=== PATIENT | male | born 1935 | race Caucasian/White ===

== ENCOUNTER 2019-01-31 17:02 | Inpatient (IN) | payer OTHER ==
[~2019-01-31] VITALS: Ht 157.5 cm; Wt 44.5 kg
[2019-01-31] MEDS ORDERED: HYDROcodone-ACET 5/325MG TAB PO ONE (19:45)
[2019-01-31] MEDS ORDERED: ONDANSETRON ODT 4 MG TAB PO ONE (19:45)
[2019-01-31 20:05] LABS: Basophils # (auto) 0 uL; Basophils % (auto) 0.9 % (0.0-2.0); Eosinophils # (auto) 0.1 uL; Eosinophils % (auto) 3.9 % (0.0-7.0); Hematocrit 29.8 % (41.0-53.0); Lymphocytes # (auto) 0.7 uL; Lymphocytes % (auto) 23.4 % (10.0-50.0); Mean Corpuscular Hemoglobin 31.8 pg (28.0-32.0); Mean Corpuscular Hgb Conc. 33.5 g/dL (32.0-36.0); Monocytes # (auto) 0.2 uL; Monocytes % (auto) 7.8 % (0.0-12.0); Neutrophils # (auto) 1.9 uL; Platelet Count (auto) 191 10^3/uL (140-450); Red Blood Cells 3.13 10^6/uL (4.5-5.90); Red Cell Distribution Width 13.1 % (11.8-14.3); White Blood Cell 2.9 10^3/uL (4.4-10.8)
[2019-01-31 20:20] LABS: Albumin 3.6 g/dL (3.4-5.0); Anion Gap 6 (5-15); Blood Urea Nitrogen 40 mg/dL (7-18); Carbon Dioxide 21 mmol/L (21-32); Chloride 116 mmol/L (98-107); Glucose 118 mg/dL (74-106); Magnesium 2.2 mg/dL (1.6-2.6); Potassium 4.7 mmol/L (3.5-5.1); Sodium 143 mmol/L (136-145)
[2019-01-31 20:21] LABS: INR 0.96 (0.9-1.15); Partial Thromboplastin Time 35.6 sec (23.64-32.05)
[2019-01-31 20:30] LABS: Alanine Aminotransferase 18 U/L (16-61); Alkaline Phosphatase 72 U/L (45-117); Aspartate Aminotransferase 18 U/L (15-37); BUN/Creatinine Ratio 21.1; Bilirubin, Total 0.2 mg/dL (0.2-1.0); Calcium 8.9 mg/dL (8.5-10.1); GFR African American 44 mL/min; GFR Non-African American 36 mL/min
[2019-01-31] MEDS ORDERED: ACETAMINOPHEN 500 MG TAB PO PRN (21:45)
[2019-01-31] MEDS ORDERED: TEMAZEPAM 15 MG CAP PO PRN (21:45)
[2019-01-31] MEDS ORDERED: ONDANSETRON HCL 4 MG/2 ML VIAL IV PRN (21:45)
[2019-01-31] MEDS ORDERED: DOCUSATE SOD 100 MG CAP PO PRN (21:45)
[2019-01-31] MEDS ORDERED: SODIUM CHLORIDE 0.9% 250 ML IV ONE (22:00)
--- NOTE | 2019-01-31 22:45 | NUR ---
MS admit from ER CEE ALMEIDA admitted to [facility]. Patient oriented to KENDAL DEVLIN RN primary RN, unit, room, bed, and unit policies regarding patient care and visiting hours. Patient weighed by bedscale and encouraged to call if they need something. All questions and concerns addressed, patient verbalized understanding. Bed in low position and call light within reach
[2019-01-31 22:51] VITALS: BP 149/52
[2019-02-01] MEDS ORDERED: INFLUENZA QUAD 2019-2020 0.5ml SYRG IM ONE (03:30)
[2019-02-01 05:00] VITALS: BP 151/59
--- NOTE | 2019-02-01 05:08 | NUR ---
Received call back from hospitalist Jennifer. Inform hospitalist of patients blood pressure. VS 174/59 b/p, HR 58, o2 saturation 100%, RR 19. Informed hospitalist that I retook B/P 151/59, HR 59. New orders received 10mg Hydralazine PO once, orders read back and confirmed. Informed Hospitalist that patient has history of HTN and home medications is unknown according to patient.
[2019-02-01] MEDS ORDERED: hydrALAZINE HCL 10 MG TAB PO ONE (05:15)
--- NOTE | 2019-02-01 06:52 | NUR ---
Reassessed blood pressure 145/68, HR 62.
[2019-02-01 06:54] LABS: Basophils # (auto) 0 uL; Basophils % (auto) 1.3 % (0.0-2.0); Eosinophils # (auto) 0.1 uL; Eosinophils % (auto) 4.1 % (0.0-7.0); Hematocrit 29.5 % (41.0-53.0); Hemoglobin 10.3 g/dL (13.5-17.5); Lymphocytes % (auto) 33.9 % (10.0-50.0); Mean Corpuscular Hemoglobin 32.7 pg (28.0-32.0); Mean Corpuscular Hgb Conc. 34.8 g/dL (32.0-36.0); Mean Corpuscular Volume 93.9 fL (80.0-100.0); Monocytes # (auto) 0.2 uL; Monocytes % (auto) 6.8 % (0.0-12.0); Neutrophils # (auto) 1.6 uL; Neutrophils % (auto) 53.9 % (37.0-80.0); Platelet Count (auto) 156 10^3/uL (140-450); Red Blood Cells 3.15 10^6/uL (4.5-5.90); Red Cell Distribution Width 13.1 % (11.8-14.3)
[2019-02-01] MEDS ORDERED: ALBUTEROL SULF 2.5 MG/0.5ML(0.5%) NEB SOLN NEB PRN (07:00)
[2019-02-01] MEDS ORDERED: IPRATROPIUM BROM 0.5 MG/2.5ML INH SOL NEB PRN (07:00)
[2019-02-01] MEDS ORDERED: HYDROcodone-ACET 5/325MG TAB PO PRN (07:00)
[2019-02-01] MEDS ORDERED: cloNIDine HCL 0.1 MG TAB PO PRN ×2 (07:00→13:45)
[2019-02-01 07:04] LABS: BUN/Creatinine Ratio 23.4; Calcium 8.6 mg/dL (8.5-10.1); Potassium 5.1 mmol/L (3.5-5.1)
--- NOTE | 2019-02-01 07:16 | NUR ---
Report given to juan sosa
--- NOTE | 2019-02-01 07:20 | NUR ---
Opening Shift Note Assumed care of patient, awake and alert x3. No S/S of distress/SOB, no pain noted or reported. Respirations are even and unlabored on RA. Updated on POC and instructed to call for assistance as needed, pt. verbalized understanding but needs reinforcement. Bed locked in lowest position, side rails up x2, call light within reach, bed alarm on for safety. Will continue to monitor for changes Q1hr and PRN.
--- NOTE | 2019-02-01 08:25 | NUR ---
Respiratory note: PT AWAKE, AND ALERT. NO RESPIRATORY DISTRESS NOTED. SPO2 97% ON RA, HR 77, RR 16, BS CLEAR T/O. PRN MEDNEB TX NOT INDICATED AT THIS TIME. PT INFORMED TO PUSH CALL BUTTON IF INCREASED WOB, SOB, OR WHEEZING OCCUR.
[2019-02-01 09:00] VITALS: BP_SYST 161; BP_SYST 168; BP_DIAS 50; BP_DIAS 64
[2019-02-01] MEDS ORDERED: FERR-20 PO ×2 (09:34→09:37)
[2019-02-01] MEDS ORDERED: CLO01T PO ×2 (09:34→09:37)
[2019-02-01] MEDS ORDERED: LISI40TA PO ×2 (09:35→09:37)
[2019-02-01] MEDS ORDERED: MIRT1TAB38 PO ×2 (09:35→09:37)
[2019-02-01] MEDS ORDERED: B-COTAB10 PO ×2 (09:36→09:37)
[2019-02-01] MEDS ORDERED: ALB5IS NEB (09:37)
[2019-02-01] MEDS ORDERED: LISINOPRIL 20 MG TAB PO SCH (10:00)
[2019-02-01] MEDS ORDERED: PANTOPRAZOLE 40 MG TAB PO SCH (10:00)
--- NOTE | 2019-02-01 10:00 | NUR ---
SPOKE WITH [facility] CODING SPEC ZUNILDA, WITH [employer], STATES ALL HOME HEALTH SERVICES HAS BEEN SET UP AND PATIENT IS OKAY TO BE DISCHARGED HOME TODAY PER MD ORDERS. [employer] WILL BE ARRANGED FOR 2PM TODAY.
[2019-02-01 13:00] VITALS: BP 126/61
--- NOTE | 2019-02-01 13:20 | NUR ---
Dr. Ramirez at bedside doing mini mental assessment.
--- NOTE | 2019-02-01 13:40 | NUR ---
Spoke with Dr. Gonzalez Regarding mini-mental assessment, states pt. is cleared to be discharged home. Will verify with social services specialist, Fernanda Valentin, and [facility] regarding transportation.
--- NOTE | 2019-02-01 14:40 | NUR ---
Spoke with Fernanda Homero Wastewater Design Engineer Fernanda states that patient is cleared for discharge home after speaking with [facility] and [facility].
--- NOTE | 2019-02-01 15:10 | NUR ---
D/C Planning Per consult for Home health for HHC, safety, RN visits, DRYING ROOM OPERATOR to arrange for [facility]. Contacted [facility]: ) Fax:) faxed medical records. Per Larissa from [facility] referral has been received and service to start within 48hrs upon d/c day. Contacted [facility]:) spoke to Jessika. Per Jessika from [facility] authorization has been given to home health acceptance. Contacted [facility]:) spoke to Jennifer. Per Jennifer from [facility] transportation will be 15:00. Informed KELY Lopez. Addendum: 02/01/19 at 1511 by ROHINI JERNIGAN Amended: Links added.
--- NOTE | 2019-02-01 15:15 | NUR ---
Discharge instructions given as ordered. Encourage to follow up with PCP as instructed. All questions and concerns addressed. Patient verbalized understanding. Medication reconciliation form completed and copy given to patient. Influenza vaccine given as ordered, patient tolerated well. IV removed with catheter intact, pressure dressing applied. Patient taken to vehicle via wheelchair by [employer] with all personal belongings. No distress noted at time of departure.
--- NOTE | 2019-02-01 16:52 | NUR ---
assessment re: limited support system. Patient is a 83 year old male who is alert and oriented, but can be forgetful. Prior to admission patient lived home with his Adrianna and functioned with her assistance. Per patient his PCP is Dr Agosto. Per patient Adrianna cooks and cleans for him. Per patient he has a cane and fww for home use. Patients son usually helps with driving to appointment. Patient informed me his need is transportation. Patient has been provided with [employer] bus information to his who is at bedside. Patient also has a ss consult for home health, home safety, and ICE PLANT OPERATOR. I have assessed patient and he is capable of making his own decisions. DR Ramirez has done a mini mental on patient and found him to be capable of making decisions. Patient has been cleared by MD and myself to return home. When I spoke to Mireille Steiner regarding patient and his . Mireille was more concerned about patients making decisions. Please see my note on MR # [id number]. [employer] case reviewer has set up transportation home and RN and ICE PLANT OPERATOR visit. I informed patient he has a right to speak to a high school social studies tutor regarding all care. I informed patient he has a right to participate in any and all discharge planning. Patient does not have a POA and advanced directive. I have offered patient information on POA and advanced directives. I informed the patient the advantages and benefits of having an Advanced Directive. Patient verbalized understanding and agreed to discharge plan. Addendum: 02/01/19 at 1659 by Fernanda JENKINS Amended: Links added.
[2019-02-01] MEDS ORDERED: ATORVASTATIN 20 MG TAB PO SCH (22:00)
[2019-02-02] MEDS ORDERED: ASPirin 81 mg TAB PO SCH (10:00)
== END 2019-02-01 15:15 | disposition home health service (06) | DRG 552 ==
LOC: EDBD 17:02 → ER 17:02 → OVERFLOW 17:03 → CENTRAL 22:54
PROVIDERS: ADMIT Nurse Practitioner Family; ATTEND Hospitalist
DX: M54.16 Radiculopathy, lumbar region (principal); E44.1 Mild protein-calorie malnutrition; N18.4 Chronic kidney disease, stage 4 (severe); Z68.1 Body mass index [BMI] 19.9 or less, adult; R62.7 Adult failure to thrive; G89.29 Other chronic pain; G31.84 Mild cognitive impairment of uncertain or unknown etiology; I12.9 Hypertensive chronic kidney disease with stage 1 through stage 4 chronic kidney disease, or unspecified chronic kidney disease; Z85.048 Personal history of other malignant neoplasm of rectum, rectosigmoid junction, and anus; M41.9 Scoliosis, unspecified; J44.9 Chronic obstructive pulmonary disease, unspecified
CPT/HCPCS: 36415; 71045; 80048; 80053; 83735; 83880; 84443; 84484; 85025; 85610; 85730; 93005; G0378; Q0162

== ENCOUNTER 2020-08-27 13:14 | Emergency (ER) | payer OTHER, MEDICAID ==
[~2020-08-27] VITALS: Ht 167.6 cm; Wt 65.8 kg
[~2020-08-27 13:14] MED LIST: ALB5IS NEB; B-COTAB10 PO; CLO01T PO; FERR-20 PO; LISI40TA11 PO; MIRT1TAB38 PO
[2020-08-27 13:56] LABS: Basophils # (auto) 0 10 ^3/uL (0-0.2); Basophils % (auto) 0.9 % (0.0-2.0); Eosinophils # (auto) 0.1 10 ^3/uL (0-0.8); Eosinophils % (auto) 2.7 % (0.0-7.0); Hematocrit 30.2 % (41.0-53.0); Hemoglobin 10.4 g/dL (13.5-17.5); Lymphocytes # (auto) 1.3 10 ^3/uL (0.4-5.4); Lymphocytes % (auto) 35.8 % (10.0-50.0); Mean Corpuscular Hemoglobin 32.9 pg (28.0-32.0); Mean Corpuscular Hgb Conc. 34.3 g/dL (32.0-36.0); Mean Corpuscular Volume 95.7 fL (80.0-100.0); Monocytes # (auto) 0.3 10 ^3/uL (0-1.3); Monocytes % (auto) 7.4 % (0.0-12.0); Neutrophils % (auto) 53.2 % (37.0-80.0); Platelet Count (auto) 168 10^3/uL (140-450); Red Blood Cells 3.16 10^6/uL (4.5-5.90); Red Cell Distribution Width 14.3 % (11.8-14.3); White Blood Cell 3.7 10^3/uL (4.4-10.8)
[2020-08-27 14:28] LABS: Albumin 3.8 g/dL (3.4-5.0); Anion Gap 5 (5-15); Blood Urea Nitrogen 45 mg/dL (7-18); Calcium 8.3 mg/dL (8.5-10.1); Carbon Dioxide 23 mmol/L (21-32); Chloride 114 mmol/L (98-107); Glucose 101 mg/dL (74-106); Sodium 142 mmol/L (136-145)
[2020-08-27 14:33] LABS: Alanine Aminotransferase 16 U/L (16-61); Alkaline Phosphatase 44 U/L (45-117); Aspartate Aminotransferase 14 U/L (15-37); BUN/Creatinine Ratio 20.4; Bilirubin, Total 0.2 mg/dL (0.2-1.0); GFR African American 37 mL/min; GFR Non-African American 30 mL/min; Total Protein 7.1 g/dL (6.4-8.2)
[2020-08-27 14:51] LABS: Potassium 5.8 mmol/L (3.5-5.1)
[2020-08-27] MEDS ORDERED: SODIUM ZIRCONIUM CYCL 10 GM PAK PO ONE (15:00)
[2020-08-27] MEDS ORDERED: CALCIUM GLUC 1,000mg/50ml-NS 50 ML IV ONE (15:00)
[2020-08-27] MEDS ORDERED: FUROSEMIDE 20 MG/2 ML VIAL IV ONE (15:00)
[2020-08-27] MEDS ORDERED: InsuLIN REG 1unit/0.01ml Soln (100units/ml) IV ONE (15:00)
[2020-08-27] MEDS ORDERED: SODIUM BICARBONATE 8.4% INJ 50ML SYRINGE IV ONE (15:00)
[2020-08-27] MEDS ORDERED: DEXTROSE (50%) 50ML SYRG IV ONE (15:00)
[2020-08-27] MEDS ORDERED: ALBUTEROL SULF 2.5 MG/0.5ML(0.5%) NEB SOLN NEB ONE (15:00)
[2020-08-27] MEDS ORDERED: SODIUM CHLORIDE 0.9% 1,000 ML IV ONE (15:45)
[2020-08-27 16:29] VITALS: BP 144/69
[2020-08-27] MEDS ORDERED: SODIUM BICARBONATE 8.4 % INJ 50ML VIAL IV ONE ×2 (16:45→19:00)
== END 2020-08-27 19:32 | disposition home or self-care (01) ==
LOC: ER 13:14 → EDBD 13:14 → ER 19:32
DX: E87.5 Hyperkalemia (principal); D64.9 Anemia, unspecified; E78.00 Pure hypercholesterolemia, unspecified; I10 Essential (primary) hypertension; Z79.899 Other long term (current) drug therapy
CPT/HCPCS: 36415; 80053; 84132; 84484; 85025; 93005; 94640; 96361; 96365; 96375; 96376; 99284; J0610; J1815; J1940